=== PATIENT | male | born 1975 | race Asian ===

== ENCOUNTER → 2016-11-23 | Outpatient (CLI) | payer BC, OTHER ==
[2016-11-23 11:56] LABS: CHOL/HDL RATIO 3.4 (4.2-7.3)
== END | disposition home or self-care (01) ==
LOC: LABPV 09:58
PROVIDERS: ATTEND Internal Medicine
DX: I10 Essential (primary) hypertension (principal); I42.8 Other cardiomyopathies; E66.3 Overweight
CPT/HCPCS: 84450; 84460